=== PATIENT | female | born 1945 | race Caucasian/White ===

== ENCOUNTER → 2016-09-25 | Outpatient (REF) | payer MEDICARE ==
[~2016-09-25] MED LIST: ASPI81TA60 PO; ASPI81TA85 PO; ATOR1TAB21 PO; B COTAB6 PO; CALCTAB7 PO; CENTTAB PO; CRES20TA PO; DILA100C PO; GLUC250C5 PO; KEPP500T5 PO; LEVE500XR PO; LEVO100T5 PO; LEVO75TA3 PO; LOSA100T36 PO; MULTTAB33 PO; NORV5TAB PO; OMEG100011 PO; OMEG12002 PO; TYLE325T5 PO; ULTR50TA PO; VIMP50TA3 PO; VITA-112 PO; VITA100066 PO; VITA400C2 PO; VITACAP33 PO; VITACAP8 PO; [UNRECOGNIZED DRUG - CODE] PO
== END ==
LOC: M LAB REF 16:44
PROVIDERS: ATTEND Nurse Practitioner Family
DX: G40.409 Other generalized epilepsy and epileptic syndromes, not intractable, without status epilepticus (principal)

== ENCOUNTER 2016-10-01 11:46 | Inpatient (IN) | payer MEDICARE ==
[~2016-10-01] VITALS: Ht 160 cm; Wt 79.1 kg
[~2016-10-01 11:46] MED LIST changes: +KEPP500T13 PO; -KEPP500T5 PO; +VITA400C7 PO
[2016-10-01] MEDS ORDERED: LOSARTAN 50 MG TAB PO SCH (12:00)
[2016-10-01] MEDS ORDERED: KEPP500T13 PO (12:02)
[2016-10-01 12:45] LABS: BASO # 0.1 K/mm3 (0.0-0.2); BASO % 0.8 % (0.0-1.0); EOS # 0.2 K/mm3 (0.0-0.50); EOS % 3.1 % (0.0-3.0); LARGE UNSTAINED CELL # 0.2 K/mm3 (0.0-0.4); LYMPH # 2.4 K/mm3 (1.5-4.5); LYMPH % 30.4 % (24.0-44.0); MEAN CORPUSCULAR HEMOGLOBIN 31.6 pg (27.0-33.0); MEAN CORPUSCULAR HGB CONC 34.7 g/dl (32.0-36.5); MONO # 0.4 K/mm3 (0.0-0.8); MONO % 5.5 % (0.0-5.0); NEUTROPHILS # 4.2 K/mm3 (1.8-7.7); NEUTROPHILS % 57.2 % (36.0-66.0); RED CELL DISTRIBUTION WIDTH 13.7 % (11.5-14.5); WHITE BLOOD COUNT 7.3 K/mm3 (4.0-10.0)
--- NOTE | 2016-10-01 12:47 | REP ---
Clinical: Syncope . Comparison: 12/07/2014. Findings: The mediastinum and cardiac silhouette are stable and within normal limits for portable technique. The lung stevens are clear without acute consolidation, effusion, or pneumothorax. Skeletal structures are intact. Impression: No acute cardiopulmonary process appreciated. Signed by Al Gomes MD 10/01/2016 12:38 P
--- NOTE | 2016-10-01 12:54 | REP ---
Clinical: Hypertension and seizures. Comparison: 12/04/2014. Findings: Age-related atrophy and microvascular ischemic changes are appreciated. Old right occipital infarction with encephalomalacia noted. The ventricles and sulci are symmetric. Muñoz-white differentiation is maintained. There is no evidence for acute intracranial hemorrhage, mass/mass effect, pathology or infarction. No extra-axial fluid collection. Calvarium is intact. Paranasal sinuses and mastoid air cells are clear. Impression: Age related atrophy and microvascular ischemic changes. Old right occipital infarct. No acute intracranial hemorrhage, infarction, or mass/mass effect. Signed by Al Gomes MD 10/01/2016 12:46 P
[2016-10-01] MEDS ORDERED: levETIRAcetam 250MG TABLET (KEPPRA) PO ONE (13:00)
[2016-10-01 13:08] LABS: ALBUMIN/GLOBULIN RATIO 1.08 (1.00-1.93); ALKALINE PHOSPHATASE 92 U/L (45-117); ANION GAP 9 MEQ/L (8-16); AST/SGOT 19 U/L (15-37); BILIRUBIN,DIRECT < 0.1 MG/DL (0.0-0.2); BILIRUBIN,TOTAL 0.5 MG/DL (0.2-1.0); BLOOD UREA NITROGEN 31 MG/DL (7-18); CALCIUM LEVEL 8.5 MG/DL (8.8-10.2); CARBON DIOXIDE LEVEL 24 MEQ/L (21-32); CHLORIDE LEVEL 105 MEQ/L (98-107); CREATININE FOR GFR 1.74 MG/DL (0.55-1.02); GLOMERULAR FILTRATION RATE 30.7 (>39); GLUCOSE, FASTING 116 MG/DL (83-110); MAGNESIUM LEVEL 2.6 MG/DL (1.8-2.4); PHOSPHORUS LEVEL 3.8 MG/DL (2.5-4.9); POTASSIUM SERUM 4.8 MEQ/L (3.5-5.1); SODIUM LEVEL 138 MEQ/L (136-145); TOTAL PROTEIN 7.7 GM/DL (6.4-8.2)
[2016-10-01 13:10] LABS: ALT/SGPT 29 U/L (12-78)
[2016-10-01 13:12] LABS: PLATELET COUNT, AUTOMATED 80 k/mm3 (150-450)
[2016-10-01] MEDS: NS 1,000 ML IV SCH ×2 (13:40→16:28)
[2016-10-01] MEDS ORDERED: AMLO5TAB2 PO (14:32)
[2016-10-01] MEDS ORDERED: LOSA100T36 PO (14:32)
[2016-10-01] MEDS ORDERED: ALEV220T26 PO (14:32)
[2016-10-01] MEDS ORDERED: ASPI1TAB PO (14:32)
[2016-10-01] MEDS ORDERED: DEXTROSE 50% 50 ML SYRINGE IV PRN (15:30)
[2016-10-01] MEDS ORDERED: ACETAMINOPHEN TAB 650MG DOSE (2X325MG) PO PRN (15:30)
[2016-10-01] MEDS ORDERED: GLUCAGON FOR INJ 1 MG VIAL (J1610) SC PRN (15:30)
[2016-10-01 16:00] VITALS: BP 167/73
[2016-10-01] MEDS: ASPIRIN 81 MG ENTERIC TAB PO SCH (16:27)
[2016-10-01] MEDS: MULTIVITAMINS/MINERALS THERAP 1 TAB PO SCH (16:27)
[2016-10-01] MEDS: amLODIPine 5 MG TAB PO SCH (16:27)
[2016-10-01] MEDS: ATORVASTATIN 20 MG TAB PO SCH (16:27)
[2016-10-01] MEDS: HumaLOG INSULIN (NovoLOG) PER UNIT SC SCH ×2 (18:03→20:30)
[2016-10-01 19:50] VITALS: BP 135/63
[2016-10-01] MEDS ORDERED: NS 1,000 ML IV SCH (20:15)
[2016-10-01] MEDS ORDERED: levETIRAcetam **XR** 500 MG TABLET PO SCH (21:00)
--- NOTE | 2016-10-01 21:22 | HPE ---
DATE OF ADMISSION: 10/01/2016 PRIMARY CARE PROVIDER: Dr. Alok Duffy CHIEF COMPLAINT: Seizure. HISTORY OF PRESENT ILLNESS: The patient is a 71-year-old female with a diagnosis of seizure disorder since 2010 a year after she had a stroke. She is presenting after a witnessed seizure episode at a [place]astafari, lasting about 5 minutes, this includes postictal phase. She had two friends at her bedside who were witnesses to the seizure and they explained that it started off, she was in a seated position and staring off, looking into space, and then one of them noticed her left cheek muscle began to twitch and on the right corner of the mouth she was drooling. After the seizure the patient was incoherent and confused for a few minutes. Emergency medical services (EMS) arrived and the patient was brought to the hospital. She does not recall any of this event, including her ride to the hospital. She did mention that she stopped taking her second dose of Keppra in the evening because it made her really tired and drowsy. She has recently had three episodes of breakthrough seizures, last one was on Father's Day, two weeks ago. It happened at [employer]. She denies any headache, head trauma, dizziness, tongue biting, fecal or bladder incontinence, chest pain, palpitations, shortness of breath, cough. PAST MEDICAL HISTORY: 1. Seizure. 2. CVA, stroke. 3. Hypertension. 4. Hyperlipidemia. 5. Hypothyroidism. PAST SURGICAL HISTORY: Denies. FAMILY HISTORY: Noncontributory. SOCIAL HISTORY: The patient has never smoked. Denies alcohol or recreational drug use. She is single, never . 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 ALLERGIES TO MEDICATIONS: None. HOME MEDICATIONS: - amlodipine 5 mg once a day - baby aspirin 81 mg once a day - atorvastatin 20 mg once a day - Keppra 500 mg by mouth twice a day - Synthroid 100 mcg once a day - losartan 100 mg once daily - multivitamin one tablet daily - naproxen 220 mg by mouth daily as needed PHYSICAL EXAMINATION: VITAL SIGNS: Blood pressure 134/63, pulse 76, respiratory rate 20, oxygen saturation 97%, 97 degrees Fahrenheit. GENERAL: She is alert, oriented to person, place, time, circumstance. HEENT: Pupils are equal, round and reactive to light. Extraocular muscles intact. Anicteric sclerae. Mucous membranes moist. NECK: Supple. Nontender to palpation. No adenopathy. CARDIOVASCULAR SYSTEM: S1, S2 present. Regular rate. No audible murmurs, rubs or gallops. LUNGS: Clear to auscultation bilaterally. GASTROINTESTINAL: Abdomen is soft, nontender, nondistended. Normal bowel sounds. MUSCULOSKELETAL SYSTEM: No edema, cyanosis, or calf tenderness. Pulses are normal in all extremities. SKIN: Warm, dry. No rash or petechiae or ecchymosis. NEUROLOGIC: Nonfocal findings. LABORATORY DATA: Hematology: White blood cell count is 7.8 thousand, hemoglobin 13.3, hematocrit 38.2, platelets 80. Chemistry: Sodium 138, potassium 4.8, chloride 105, bicarbonate 24, BUN 31, creatinine 1.74, baseline creatinine is 1.4, GFR 30.7, glucose 116, calcium 8.5, phosphorous 3.8, magnesium 2.6. Liver function tests within normal limits. Toxicology: Keppra level is pending. IMAGING STUDIES: CT scan of the head shows age-related atrophy and microvascular ischemic changes. Old right occipital infarct. No acute intracranial pathology. Chest x-ray showed no acute cardiopulmonary process appreciated. IMPRESSION: 1. Status post seizure secondary to medication noncompliance. 2. Renal insufficiency, likely from decreased oral intake. The patient's baseline creatinine is 1.4. 3. History of hypertension, uncontrolled. 4. Thrombocytopenia. 5. History of hyperlipidemia. 6. History of hypothyroidism, stable. PLAN: The patient is admitted to the medical/surgical unit. Resume her Keppra 500 mg twice a day. Awaiting Keppra level; however, the patient would like to switch to another antiseizure medication without the side effect, the drowsiness and feeling tired. Her other needed medications are renewed. Consulted neurology, Dr. Jackeline Mercado. Also, ordered EEG to be done tomorrow. We will monitor creatinine level to normalization. Deep vein thrombosis (DVT) prophylaxis is with antiembolic stockings. Also, monitor platelet level. We will recommend hematology followup after discharge if persists.
[2016-10-01 23:44] VITALS: BP 165/77
[2016-10-02] MEDS ORDERED: SLF 3 ML SYR IV PRN (00:45)
[2016-10-02 03:07] VITALS: BP 155/67
[2016-10-02 05:39] LABS: ALBUMIN 3.1 GM/DL (3.2-5.2); ALBUMIN/GLOBULIN RATIO 0.94 (1.00-1.93); BILIRUBIN,TOTAL 0.3 MG/DL (0.2-1.0); CALCIUM LEVEL 8.1 MG/DL (8.8-10.2); CREATININE FOR GFR 1.75 MG/DL (0.55-1.02); GLOMERULAR FILTRATION RATE 30.5 (>39); POTASSIUM SERUM 4.4 MEQ/L (3.5-5.1); TOTAL PROTEIN 6.4 GM/DL (6.4-8.2)
[2016-10-02] MEDS: LEVOTHYROXINE 100MCG TABLET (0.1MG) PO SCH (06:13)
[2016-10-02] MEDS: SLF 3 ML SYR IV SCH ×3 (06:14→20:27)
[2016-10-02] MEDS ORDERED: NS 1,000 ML IV SCH (07:45)
[2016-10-02 08:00] VITALS: BP 167/74
[2016-10-02] MEDS: HumaLOG INSULIN (NovoLOG) PER UNIT SC SCH ×4 (08:24→20:25)
[2016-10-02] MEDS ORDERED: ENOXAPARIN 40 MG/0.4 ML SYRINGE (J1650) SC SCH (09:00)
--- NOTE | 2016-10-02 09:14 | CR ---
DATE OF CONSULTATION: 10/02/2016 REFERRING PHYSICIAN: Dr. Raya Palma. REASON FOR CONSULTATION: Seizures. HISTORY OF PRESENT ILLNESS: The patient is a 71-year-old woman who developed seizures a year after she had a stroke. She was in [place] when she had stroke in 2010 which caused loss of peripheral vision. The patient does not drive because of loss of visual stevens more on left side. She had a right occipital and parietal ischemic stroke. A year after her stroke, she developed seizures in 2011 when she was still in [place]. She saw a neurologist there. She was on Keppra. Keppra made her drowsy so she was only taking it once a day. She had two generalized tonic-clonic seizures in 2011 with shaking for couple of minutes, loss of consciousness, tongue biting and postictal phase. She had no aura. She had no seizures until this past weekend. She had two seizures when she was in buddhism and at a local restaurant. There were generalized tonic-clonic seizures with postictal phase. She denies any headaches, neck or back pain. She has a right hip bursitis. She does not use a cane. She sometimes has difficulty walking due to bursitis. She does not drive. PAST MEDICAL HISTORY: Right occipital stroke. Seizures. Hypertension. Dyslipidemia. Hypothyroidism. FAMILY HISTORY: There is no family history of seizures or stroke. SOCIAL HISTORY: The patient has never smoked. She denies alcohol or illicit drugs. She is single. She never . 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 ALLERGIES: None. HOME MEDICATIONS: - aspirin 81 mg by mouth daily - Lipitor 20 mg daily - Keppra 5 mg by mouth daily - Synthroid 100 mcg by mouth daily - losartan 100 mg by mouth daily - amlodipine 5 mg by mouth daily - naproxen 220 mg by mouth twice daily as needed REVIEW OF SYSTEMS: All systems were reviewed and were found to be noncontributory except as mentioned in history of present illness. PHYSICAL EXAMINATION: Temperature 97.3, pulse 69, respiratory rate 18, blood pressure 155/67, 95% saturation on room air. Heart: Regular rate and rhythm. Lungs: Clear to auscultation. Abdomen: Soft, nontender, nondistended. No pedal edema. Peripheral pulses are palpable. No gross musculoskeletal abnormalities. Ear, nose, throat examination is within normal limits. The patient is awake, alert, oriented to place, person and time. Normal comprehension, repetition. Her recent and distant memory is intact. There are no signs of meningeal irritation. There is no tremor. There is no dysmetria. Gait is mildly unsteady. No facial weakness. Tongue and uvula are midline. Extraocular muscles are intact. She has decreased visual field to confrontation on left side. Pupils are 5 mm bilaterally reactive to light. 5/5 strength in all four extremities. Deep tendon reflexes are 1+ throughout. Normal light touch, pinprick, vibration, sensation in her feet. DIAGNOSTIC STUDIES: CT scan of head showed old right occipital ischemic stroke. ASSESSMENT: 1. 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 2. Right occipital and parietal ischemic stroke in 2010. PLAN: 1. EEG. 2. Dilantin 300 mg by mouth daily at bedtime. 3. Discontinue Keppra due to side effects. 4. She is aware that she should not be driving. The patient already does not drive due to decreased visual field in peripheral vision. 5. She can see orthopedics for right hip bursitis for steroid injections. 6. Follow with our office in 3-4 weeks after hospital discharge.
[2016-10-02 11:30] VITALS: BP 135/60
[2016-10-02] MEDS ORDERED: HEPARIN SOD (PORCINE) 5000 UNITS/ML VIAL SQ SCH (11:30)
--- NOTE | 2016-10-02 11:32 | IPNPDOC ---
Subjective Date Seen The patient was seen on 10/02/16. Subjective Chief Complaint/HPI The patient is a 71-year-old female admitted with a reason for visit of Seizure. General: Denies: Chills, Night Sweats Constitutional: Denies: Chills, Fever Eyes: Denies: Pain ENT: Denies: Head Aches, Ear Pain Skin: Denies: Rash, Lesions Pulmonary: Denies: Dyspnea, Cough Cardiovascular: Denies: Chest Pain, Palpitations Gastrointestinal: Denies: Nausea, Vomiting, Abdominal Pain Genitourinary: Denies: Dysuria, Frequency Hematologic: Denies: Bruising, Bleeding Excessively Objective Physical Examination General Exam: Positive: Alert, Cooperative, No Acute Distress ENT Exam: Positive: Atraumatic, Mucous membr. moist/pink Neck Exam: Negative: JVD Chest Exam: Positive: Clear to auscultation, Normal air movement Heart Exam: Positive: Rate Normal, Normal S1, Normal S2 Abdomen Exam: Positive: Soft, Negative: Tenderness Extremity Exam: Negative: Tenderness, Swelling Neuro Exam: Positive: Strength at 5/5 X4 ext, Normal Tone, Sensation Intact Psych Exam: Positive: Oriented x 3 Assessment /Plan Plan/VTE VTE Prophylaxis Ordered?: Yes Plan Episode of Seizure 2/2 Non-Adherence to AED Therapt CT Head with no acute findings EEG pending Patient's Keppra has been discontinued due to reported side effects Dilantin 300mg qhs has been started Neurology input appreciated Seizure precautions We will cont to monitor the patient Hx of Right Occipital and Parietal Ischemic Stroke in 2010 No focal extremity weakness Cont ASA, Statin Acute kidney injury superimposed on chronic kidney disease stage III Serum Creatinine 1.75 (Baseline Cr 1.4-1.5 from 2015) This may be a progression of underlying CKD rather than WILLAM as we do not have lab work for the last 20+ months However, we will hold nephrotoxins Gentle IVF Hydration ordered We will cont to monitor BMP Hypothyroidism Cont Levothyroxine Dyslipidemia Cont Statin Hypertension, stable Cont Norvasc DVT Prophylaxis Heparin SC VS, I&O, 24H, Fishbone Vital Signs/I&O Vital Signs Date Time Temp Pulse Resp B/P (MAP) Pulse Ox O2 Delivery O2 Flow Rate FiO2 10/02/16 08:00 97.5 62 18 167/74 (105) 99 Room Air I&O- Last 24 Hours up to 6 AM 10/02/16 06:00 Intake Total 1460 ml Output Total 1925 ml Balance -465 ml Laboratory Data 24H LABS Laboratory Tests 2 10/01/16 12:29: White Blood Count 7.3, Red Blood Count 4.20, Hemoglobin 13.3, Hematocrit 38.2, Mean Corpuscular Volume 91.0, Mean Corpuscular Hemoglobin 31.6, Mean Corpuscular Hemoglobin Concent 34.7, Red Cell Distribution Width 13.7, Platelet Count 80L, Neutrophils (%) (Auto) 57.2, Lymphocytes (%) (Auto) 30.4, Monocytes ( %) (Auto) 5.5H, Eosinophils (%) (Auto) 3.1H, Basophils (%) (Auto) 0.8, Neutrophils # (Auto) 4.2, Lymphocytes # (Auto) 2.4, Monocytes # (Auto) 0.4, Eosinophils # (Auto) 0.2, Basophils # (Auto) 0.1, Large Unclassified Cells % 3.0 , Large Unclassified Cells # 0.2, Anion Gap 9, Glomerular Filtration Rate 30.7L , Calcium Level 8.5L, Phosphorus Level 3.8, Magnesium Level 2.6H, Aspartate Amino Transf (AST/SGOT) 19, Alanine Aminotransferase (ALT/SGPT) 29, Alkaline Phosphatase 92, Total Bilirubin 0.5, Direct Bilirubin < 0.1, Total Protein 7.7, Albumin 4.0, Albumin/Globulin Ratio 1.08 10/01/16 17:02: Bedside Glucose (Misc Panel) 195H 10/01/16 20:29: Bedside Glucose (Misc Panel) 164H 10/01/16 21:44: Urine Appearance HAZY, Urine Color YELLOW, Urine pH 5.0, Urine Specific [place] 1.016, Urine Protein 1+H, Urine Glucose (UA) 1+H, Urine Ketones NEGATIVE, Urine Urobilinogen 0.2, Urine Bilirubin NEGATIVE, Urine Leukocyte Esterase 2+H, Urine Blood NEGATIVE, Urine Nitrite NEGATIVE, Urine WBC (Auto) 32H, Urine RBC (Auto) 4H, Urine Hyaline Casts (Auto) 0, Urine Bacteria (Auto) NEGATIVE, Urine Squamous Epithelial Cells 1, Urine Mucus (Auto) SMALL, Urine Sperm (Auto) 10/02/16 04:40: Anion Gap 10, Glomerular Filtration Rate 30.5L, Blood Urea Nitrogen 30H, Creatinine 1.75H, Sodium Level 141, Potassium Level 4.4, Chloride Level 110H, Carbon Dioxide Level 21, Calcium Level 8.1L, Aspartate Amino Transf (AST/SGOT) 18, Alanine Aminotransferase (ALT/SGPT) 22, Alkaline Phosphatase 81, Total Bilirubin 0.3, Total Protein 6.4, Albumin 3.1#L, Albumin/Globulin Ratio 0.94L CBC/BMP Laboratory Tests 10/01/16 12:29 Red Blood Count 4.20, Mean Corpuscular Volume 91.0, Mean Corpuscular Hemoglobin 31.6, Mean Corpuscular Hemoglobin Concent 34.7, Red Cell Distribution Width 13.7 , Neutrophils (%) (Auto) 57.2, Lymphocytes (%) (Auto) 30.4, Monocytes (%) (Auto ) 5.5 H, Eosinophils (%) (Auto) 3.1 H, Basophils (%) (Auto) 0.8, Neutrophils # ( Auto) 4.2, Lymphocytes # (Auto) 2.4, Monocytes # (Auto) 0.4, Eosinophils # (Auto ) 0.2, Basophils # (Auto) 0.1 10/02/16 04:40 Calcium Level 8.1 L, Aspartate Amino Transf (AST/SGOT) 18, Alanine Aminotransferase (ALT/SGPT) 22, Alkaline Phosphatase 81, Total Bilirubin 0.3, Total Protein 6.4, Albumin 3.1 #L JANET THORPE MD Oct 02, 2016 11:31
[2016-10-02] MEDS: amLODIPine 5 MG TAB PO SCH (12:14)
[2016-10-02] MEDS: ASPIRIN 81 MG ENTERIC TAB PO SCH (12:14)
[2016-10-02] MEDS: ATORVASTATIN 20 MG TAB PO SCH (12:14)
[2016-10-02] MEDS: MULTIVITAMINS/MINERALS THERAP 1 TAB PO SCH (12:14)
[2016-10-02 16:00] VITALS: BP 136/66
[2016-10-02 20:00] VITALS: BP 171/73
[2016-10-02] MEDS: PHENYTOIN ER 100 MG CAP PO SCH (20:27)
[2016-10-03] VITALS: BP 158/60
[2016-10-03 04:00] VITALS: BP 164/76
[2016-10-03] MEDS: SLF 3 ML SYR IV SCH ×3 (05:31→22:00)
[2016-10-03] MEDS: LEVOTHYROXINE 100MCG TABLET (0.1MG) PO SCH (05:31)
[2016-10-03 05:46] LABS: ALBUMIN 3.4 GM/DL (3.2-5.2); BILIRUBIN,TOTAL 0.4 MG/DL (0.2-1.0); CALCIUM LEVEL 8.5 MG/DL (8.8-10.2); CREATININE FOR GFR 1.6 MG/DL (0.55-1.02); GLOMERULAR FILTRATION RATE 33.8 (>39); POTASSIUM SERUM 4.2 MEQ/L (3.5-5.1); TOTAL PROTEIN 6.8 GM/DL (6.4-8.2)
--- NOTE | 2016-10-03 07:16 | ECGEPIP ---
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
[2016-10-03] MEDS: HumaLOG INSULIN (NovoLOG) PER UNIT SC SCH ×4 (07:54→21:00)
[2016-10-03 08:00] VITALS: BP 157/71
[2016-10-03 10:25] VITALS: BP 156/72
[2016-10-03] MEDS: ATORVASTATIN 20 MG TAB PO SCH (12:16)
[2016-10-03] MEDS: amLODIPine 10 MG TAB PO SCH (12:16)
[2016-10-03] MEDS: MULTIVITAMINS/MINERALS THERAP 1 TAB PO SCH (12:16)
[2016-10-03] MEDS: ASPIRIN 81 MG ENTERIC TAB PO SCH (12:16)
[2016-10-03 14:00] VITALS: BP 146/68
[2016-10-03] MEDS ORDERED: PHENYTOIN INJection 1,000 MG in NS 100 ML IV ONE (17:00)
--- NOTE | 2016-10-03 17:13 | IPN ---
DATE: 10/03/2016 SUBJECTIVE: The patient is seen and examined in the room today. The patient denies any recurrence of seizure or altered mental status changes. The patient was started on Dilantin yesterday night. The patient does not have any adverse reaction. The patient was taking Keppra in the past. The patient stated that initially the evening dose caused her to have confusion that was the reason why she did not take any Keppra in the evening time. No overnight events reported. OBJECTIVE: VITAL SIGNS: Temperature is 97.8, pulse of 58, respirations 18, blood pressure is 157/71, pulse oximetry 96% on room air. GENERAL: No sign of acute distress. Alert, oriented times three. HEENT: Normocephalic, atraumatic. Extraocular motors grossly intact. CARDIOVASCULAR: Positive S1, S2. Regular rate. LUNGS: Clear to auscultation bilaterally. ABDOMEN: Soft, nontender, nondistended. Bowel sounds present. No rebound or guarding. EXTREMITIES: No edema. No sign of cyanosis. LABORATORY DATA: Sodium is 140, potassium 4.2, chloride is 108, carbon dioxide 25, BUN 31, creatinine 1.6, GFR is 33.8, fasting glucose 131, calcium is 8.5, total bilirubin is 0.4, AST 14, ALT 22, alkaline phosphatase 85, total protein 6.8, albumin 3.1. ASSESSMENT AND PLAN: 1. Seizures. The patient will have EEG. Neurology has been consulted. Keppra was discontinued. The patient was started on Dilantin 300 mg at night. The patient had her first dose yesterday. No adverse effects seen. Continue to monitor the patient. 2. History of right occipital and parietal lobe ischemic stroke in 2010. Continue aspirin and statin. 3. Acute on chronic kidney disease. At baseline, the patient has creatinine around 1.5 measured in 2014. Currently, the patient has a creatinine of 1.6, which is improving compared to yesterday. Continue to monitor. Encourage increased oral intake. 4. Hypothyroidism. On Synthroid. 5. Dyslipidemia. On statin. 6. Hypertension. Due to acute on chronic kidney disease, the patient's losartan was on hold. We will increase the patient's amlodipine. 7. Deep vein thrombosis (DVT) prophylaxis. The patient is on thromboembolic compression stockings (TEDS) and sequential compression device (SCD).
[2016-10-03] MEDS: PHENYTOIN ER 100 MG CAP PO SCH (21:25)
[2016-10-03] MEDS: BETAMETHASONE VAL 0.1% OINT 15 GM TOP SCH (21:30)
[2016-10-03 22:00] VITALS: BP 152/74
[2016-10-04] MEDS: LEVOTHYROXINE 100MCG TABLET (0.1MG) PO SCH (05:52)
[2016-10-04] MEDS: SLF 3 ML SYR IV SCH ×3 (05:59→21:07)
[2016-10-04 06:00] VITALS: BP 129/67
[2016-10-04 06:57] LABS: ALBUMIN 3.4 GM/DL (3.2-5.2); ALBUMIN/GLOBULIN RATIO 0.94 (1.00-1.93); BILIRUBIN,TOTAL 0.4 MG/DL (0.2-1.0); CALCIUM LEVEL 8.6 MG/DL (8.8-10.2); CREATININE FOR GFR 1.81 MG/DL (0.55-1.02); GLOMERULAR FILTRATION RATE 29.3 (>39); POTASSIUM SERUM 4.3 MEQ/L (3.5-5.1)
[2016-10-04] MEDS: HumaLOG INSULIN (NovoLOG) PER UNIT SC SCH ×4 (09:21→21:06)
[2016-10-04] MEDS: BETAMETHASONE VAL 0.1% OINT 15 GM TOP SCH ×2 (09:22→21:07)
[2016-10-04] MEDS ORDERED: diphenhydrAMINE 25 MG CAP PO ONE (10:15)
[2016-10-04] MEDS: amLODIPine 10 MG TAB PO SCH (12:33)
[2016-10-04] MEDS: ATORVASTATIN 20 MG TAB PO SCH (12:33)
[2016-10-04] MEDS: MULTIVITAMINS/MINERALS THERAP 1 TAB PO SCH (12:33)
[2016-10-04] MEDS: ASPIRIN 81 MG ENTERIC TAB PO SCH (12:33)
[2016-10-04] MEDS: DIVALPROEX 500MG *ER* TAB PO SCH ×2 (12:34→21:05)
[2016-10-04 14:00] VITALS: BP 147/69
[2016-10-04] MEDS ORDERED: diphenhydrAMINE 25 MG CAP PO PRN (15:00)
[2016-10-04] MEDS: predniSONE 20 MG TAB PO SCH (18:05)
--- NOTE | 2016-10-04 19:24 | IPN ---
DATE: 10/04/2016 SUBJECTIVE: The patient is seen and examined in the room today. The patient complains about rapid progressing rashes throughout her whole body that creates significant itchiness. No recurrence of seizure observed. OBJECTIVE: VITAL SIGNS: Temperature is 99, pulse of 66, respirations 18, blood pressure is 129/67, pulse oximetry 97% on room air. GENERAL: No sign of acute distress. Alert, oriented times three. HEENT: Normocephalic, atraumatic. Extraocular motors grossly intact. CARDIOVASCULAR: Positive S1, S2. Regular rate. LUNGS: Clear to auscultation bilaterally. ABDOMEN: Soft, nontender, nondistended. Bowel sounds present. No rebound or guarding. MUSCULOSKELETAL: No lower extremity edema. No signs of cyanosis. DERMATOLOGICAL: Widespread scattered rash front and back of the trunk and majority of the bilateral upper extremities and proximal lower extremities. LABORATORY DATA: Sodium is 140, potassium 4.3, chloride is 104, carbon dioxide 28, BUN 35, creatinine 1.81, GFR is 29.3, fasting glucose 126, calcium is 8.6, total bilirubin is 0.4, AST 14, ALT 23, alkaline phosphatase 79, total protein 7, albumin 3.4. ASSESSMENT AND PLAN: 1. Seizures. The patient had an EEG. Will follow up with outpatient report. Neurology has been consulted. Initially patient was switched to adverse effect from Keppra. The patient's seizure medication was switched to Dilantin however patient started having widespread rash on Dilantin. 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 Patient seizure medication was switched to Depakote. Continue to monitor patient's seizure precautions. 2. Acute on chronic kidney disease. Most likely secondary to poor oral intake. Patient has a creatine around 12.5 in 2014. We encouraged oral intake. Will continue to monitor. 3. History of right occipital and parietal lobe ischemic stroke in 2010. Continue aspirin and statin. 4. Hypothyroidism. On Synthroid. 5. Dyslipidemia. On statin. 6. Hypertension. Due to patients acute on chronic kidney disease, the patient's losartan was on hold. The patients amlodipine dose is being adjusted. Will continue to monitor. 7. Deep vein thrombosis (DVT) prophylaxis. The patient is on thromboembolic compression stockings (TEDS) and sequential compression device (SCD).
[2016-10-04 22:00] VITALS: BP 151/68
[2016-10-05 06:00] VITALS: BP 149/72
[2016-10-05] MEDS: LEVOTHYROXINE 100MCG TABLET (0.1MG) PO SCH (06:07)
[2016-10-05] MEDS: SLF 3 ML SYR IV SCH ×3 (06:09→20:58)
[2016-10-05 07:49] LABS: MEAN CORPUSCULAR HEMOGLOBIN 31.1 pg (27.0-33.0); MEAN CORPUSCULAR VOLUME 91.4 fl (80.0-96.0); RED CELL DISTRIBUTION WIDTH 13.6 % (11.5-14.5); WHITE BLOOD COUNT 6.8 K/mm3 (4.0-10.0)
[2016-10-05 08:17] LABS: CREATININE FOR GFR 1.91 MG/DL (0.55-1.02); GLOMERULAR FILTRATION RATE 27.6 (>39); POTASSIUM SERUM 4.8 MEQ/L (3.5-5.1)
[2016-10-05] MEDS: DIVALPROEX 500MG *ER* TAB PO SCH ×2 (09:05→20:57)
[2016-10-05] MEDS: BETAMETHASONE VAL 0.1% OINT 15 GM TOP SCH ×2 (09:05→20:59)
[2016-10-05] MEDS: HumaLOG INSULIN (NovoLOG) PER UNIT SC SCH ×4 (09:05→20:58)
[2016-10-05] MEDS: predniSONE 20 MG TAB PO SCH (09:05)
[2016-10-05 14:00] VITALS: BP 148/81
[2016-10-05 14:58] VITALS: BP 149/72
[2016-10-05] MEDS: MULTIVITAMINS/MINERALS THERAP 1 TAB PO SCH (14:58)
[2016-10-05] MEDS: ATORVASTATIN 20 MG TAB PO SCH (14:58)
[2016-10-05] MEDS: amLODIPine 10 MG TAB PO SCH (14:58)
[2016-10-05] MEDS: ASPIRIN 81 MG ENTERIC TAB PO SCH (14:58)
--- NOTE | 2016-10-05 20:27 | IPN ---
DATE: 10/05/2016 SUBJECTIVE: The patient is seen and examined in the room today. The patient continues to have pruritus and rash throughout the body. However, she thinks the pruritus is being controlled with Benadryl and prednisone. The extent of the rash is also improving. No recurrence of seizures. OBJECTIVE: VITAL SIGNS: Temperature is 97.6, pulse is 71, respirations 18, blood pressure 149/72, pulse oximetry is 97% in room air. GENERAL: No sign of acute distress. Alert and oriented times three. HEENT: Normocephalic, atraumatic. Extraocular motor grossly intact. CARDIOVASCULAR: Positive S1, S2, regular rate. LUNGS: Clear to auscultation bilaterally. ABDOMEN: Soft, nontender, nondistended. Bowel sounds present. No rebound, no guarding. EXTREMITIES: No edema, no sign of cyanosis. DERMATOLOGICAL: There is a widespread scattered rash in the front and the back of the trunk, majority of bilateral upper extremities and proximal bilateral lower extremities. LABORATORY DATA: WBC is 6.8, hemoglobin 12.8, hematocrit 37.5, platelet count is 82. Sodium is 138, potassium 4.8, chloride 105, carbon dioxide 24, BUN 37, creatinine 1.91, GFR is 27.6, fasting glucose is 212, Calcium is 9. ASSESSMENT AND PLAN: 1. Seizure disorder. The patient was initially on Keppra, which caused confusion. The patient was switched to Dilantin, which caused widespread rash. Then, the patient's seizure medication was finally switched to Depakote. Dosage is being adjusted by nephrology. Appreciate their assistance. 2. Acute on chronic kidney disease. Most likely secondary to poor oral intake. The patient continued to have renal impairment, and we encouraged increased oral intake. The patient will be given IV support in the next several hours. 3. History of right occipital and parietal lobe ischemic stroke in 2010. Continue aspirin and statin. 4. Hypothyroidism. On Synthroid. 5. Dyslipidemia. On statin. 6. Hypertension. Due to acute on chronic kidney disease, losartan has been on hold. The patient is on amlodipine. Dosage is being adjusted. 7. Drug ALLERGY to DILANTIN. The patient has generalized rash. The patient has been taking as needed Benadryl for pruritus. The patient is also taking oral prednisone. Drug rash is improving. 8. Deep vein thrombosis (DVT) prophylaxis. The patient is on thromboembolism deterrents (TEDs) and sequential compression device.
[2016-10-05] MEDS: NS 1,000 ML IV SCH (21:01)
[2016-10-05 22:00] VITALS: BP 153/70
[2016-10-06] MEDS: NS 1,000 ML IV SCH (05:45)
[2016-10-06 06:00] VITALS: BP 167/76
[2016-10-06] MEDS: SLF 3 ML SYR IV SCH (06:00)
[2016-10-06] MEDS: LEVOTHYROXINE 100MCG TABLET (0.1MG) PO SCH (06:27)
[2016-10-06 07:19] LABS: MEAN CORPUSCULAR HEMOGLOBIN 31.5 pg (27.0-33.0); MEAN CORPUSCULAR HGB CONC 34.3 g/dl (32.0-36.5); MEAN CORPUSCULAR VOLUME 91.9 fl (80.0-96.0); RED CELL DISTRIBUTION WIDTH 13.8 % (11.5-14.5); WHITE BLOOD COUNT 10.9 K/mm3 (4.0-10.0)
[2016-10-06] MEDS ORDERED: PRED10TA2 PO (07:26)
[2016-10-06] MEDS ORDERED: DEPA500T2 PO (07:26)
[2016-10-06] MEDS ORDERED: AMLO10TA2 PO (07:26)
[2016-10-06] MEDS ORDERED: DIPH25CA PO (07:26)
[2016-10-06 07:49] LABS: CALCIUM LEVEL 8.3 MG/DL (8.8-10.2); CREATININE FOR GFR 1.86 MG/DL (0.55-1.02); GLOMERULAR FILTRATION RATE 28.4 (>39); POTASSIUM SERUM 4.6 MEQ/L (3.5-5.1)
[2016-10-06] MEDS: predniSONE 20 MG TAB PO SCH (09:08)
[2016-10-06] MEDS: BETAMETHASONE VAL 0.1% OINT 15 GM TOP SCH (09:08)
[2016-10-06] MEDS: DIVALPROEX 500MG *ER* TAB PO SCH (09:08)
[2016-10-06] MEDS: HumaLOG INSULIN (NovoLOG) PER UNIT SC SCH (09:08)
--- NOTE | 2016-10-06 20:47 | EEG ---
DATE OF PROCEDURE: 10/02/2016 REFERRING PHYSICIAN: Dr. Noah Torres DIAGNOSIS: Seizure. EEG NUMBER: [id number] HISTORY: The patient is a 71-year-old woman with a history of stroke and generalized tonic-clonic seizures. She is currently on Keppra and Dilantin. This EEG was done to rule out epileptic potential. INTERPRETATION: The patient was noted to be in awake and drowsy states during this EEG. Resting awake background rhythm consisted of well-formed posterior dominant rhythm with anterior/posterior gradient comprising of 9 Hz alpha activity measuring 15-40 microvolts in amplitude. It was symmetric and reactive to eye opening. Attenuation of posterior dominant rhythm was seen during transition into drowsiness. Stage I and II sleep were reviewed and were symmetric bilaterally. Hyperventilation remained unremarkable. Photic stimulation remained unremarkable. EKG revealed normal sinus rhythm. No focal, lateralizing or epileptiform abnormalities were seen. No clinical or electrographic seizures were recorded. CONCLUSION: This EEG in awake, drowsy states, stage I and II sleep is within normal limits.
--- NOTE | 2016-10-09 19:12 | DSES ---
DATE OF ADMISSION: 10/01/2016 DATE OF DISCHARGE: 10/06/2016 PRIMARY CARE PROVIDER: Alok Duffy Jr., MD CONSULTANTS: Frank Drummond MD PROCEDURES: None. COMPLICATIONS: None. DISCHARGE DIAGNOSES: 1. Seizure disorder. 2. Acute on chronic kidney disease. 3. History of right occipital and parietal lobe ischemic stroke. 4. Hypothyroidism. 5. Dyslipidemia. 6. Hypertension. HOSPITALIZATION COURSE: Patient is a 71-year-old female who presented to [facility] on 10/01/2016, after a seizure. Neurologist, Dr. Drummond, was consulted and EEG was ordered. Due to the adverse effect to Keppra, patient's antiseizure medication was switched to Dilantin. Within 24-48 hours patient started to develop a generalized rash spreading down from the upper chest throughout the whole body and patient experienced significant pruritus. Benadryl and prednisone were started and neurologist reviewed the medication and patient's antiseizure medication was switched to Depakote. Patient is observed in the hospital and patient did not have a recurrence of the seizure and patient did not have a reaction to Depakote. On 10/06/2016, patient is discharged from the hospital with the recommendation to followup with primary care provider and followup with neurologist in outpatient setting. OBJECTIVE: VITAL SIGNS: Temperature 97.7, pulse is 66, respirations 16, blood pressure 167/76, pulse oximetry 100% in room air. LABORATORY DATA: WBC 10.9, hemoglobin 11.8, hematocrit 34.5, platelet count 58. Sodium 141, potassium 4.6, chloride 107, carbon dioxide 24, BUN 42, creatinine 1.86, GFR 28.4, fasting glucose 132, calcium is 8.3. IMAGING STUDIES: CT of the head without contrast on 10/01/2016, showed age-related atrophy and microvascular ischemic change. Old right occipital infarct. No acute intracranial hemorrhage, infarction, or mass/mass effect. Chest x-ray on 10/01/2016, showed no acute cardiopulmonary process appreciated. DISCHARGE MEDICATIONS: - amlodipine 10 mg by mouth daily - Benadryl 25 mg by mouth every 6 hours as needed for 14 days - Depakote 500 mg by mouth twice a day - prednisone tapering dose - aspirin 81 mg by mouth daily - atorvastatin 20 mg by mouth daily - Synthroid 100 mcg by mouth daily - losartan 100 mg by mouth daily - multivitamin one tablet by mouth daily DISCHARGE INSTRUCTIONS: Discontinue lines. Discharge home. Activity as tolerated. Low salt diet as tolerated. Patient should followup with Dr. Duffy in 1-2 weeks. Patient should followup with neurology in 1-2 weeks. DISCHARGE CONDITION: Stable. DISCHARGE TIME: Greater than 30 minutes.
== END 2016-10-06 12:30 | disposition home or self-care (01) | DRG 57 ==
LOC: M ED 13:37 → M ED INP 15:19 → M PCU 16:01 → M MS5PR 10-03 10:22
PROVIDERS: ADMIT Hospitalist; ATTEND Internal Medicine
DX: I69.398 Other sequelae of cerebral infarction (principal); N17.9 Acute kidney failure, unspecified; E03.9 Hypothyroidism, unspecified; E78.5 Hyperlipidemia, unspecified; I12.9 Hypertensive chronic kidney disease with stage 1 through stage 4 chronic kidney disease, or unspecified chronic kidney disease; Z79.82 Long term (current) use of aspirin; Z79.899 Other long term (current) drug therapy; G40.409 Other generalized epilepsy and epileptic syndromes, not intractable, without status epilepticus; Z91.14 Patient's other noncompliance with medication regimen; H54.7 Unspecified visual loss; T42.75XA Adverse effect of unspecified antiepileptic and sedative-hypnotic drugs, initial encounter; M70.71 Other bursitis of hip, right hip; N18.3 Chronic kidney disease, stage 3 (moderate); T42.0X5A Adverse effect of hydantoin derivatives, initial encounter; Y93.9 Activity, unspecified

== ENCOUNTER → 2016-10-13 | Outpatient (CLI) | payer MEDICARE ==
[~2016-10-13] MED LIST changes: +ALEV220T26 PO; +AMLO10TA2 PO; +AMLO5TAB2 PO; +ASPI1TAB PO; +DEPA500T2 PO; +DIPH25CA PO; +PRED10TA2 PO
[2016-10-13 17:45] LABS: BASO % 0.5 % (0.0-1.0); EOS % 0.3 % (0.0-3.0); LARGE UNSTAINED CELL # 0.1 K/mm3 (0.0-0.4); LARGE UNSTAINED CELL % 0.9 % (0.0-4.0); LYMPH # 1.2 K/mm3 (1.5-4.5); MEAN CORPUSCULAR HEMOGLOBIN 30.8 pg (27.0-33.0); MEAN CORPUSCULAR HGB CONC 33.2 g/dl (32.0-36.5); MEAN CORPUSCULAR VOLUME 92.6 fl (80.0-96.0); MONO # 0.2 K/mm3 (0.0-0.8); MONO % 1.9 % (0.0-5.0); NEUTROPHILS # 6.5 K/mm3 (1.8-7.7); NEUTROPHILS % 82.4 % (36.0-66.0); PLATELET COUNT, AUTOMATED 145 k/mm3 (150-450); RED CELL DISTRIBUTION WIDTH 13.4 % (11.5-14.5); WHITE BLOOD COUNT 7.8 K/mm3 (4.0-10.0)
[2016-10-13 18:22] LABS: ALBUMIN 3.7 GM/DL (3.2-5.2); ALBUMIN/GLOBULIN RATIO 1.03 (1.00-1.93); BILIRUBIN,TOTAL 0.4 MG/DL (0.2-1.0); CALCIUM LEVEL 8.7 MG/DL (8.8-10.2); CREATININE FOR GFR 1.74 MG/DL (0.55-1.02); GLOMERULAR FILTRATION RATE 30.7 (>39); POTASSIUM SERUM 4.9 MEQ/L (3.5-5.1); TOTAL PROTEIN 7.3 GM/DL (6.4-8.2)
== END ==
LOC: M LAB 15:46
PROVIDERS: ATTEND Psychiatry & Neurology Neurology
DX: G40.209 Localization-related (focal) (partial) symptomatic epilepsy and epileptic syndromes with complex partial seizures, not intractable, without status epilepticus (principal); I63.031 Cerebral infarction due to thrombosis of right carotid artery

== ENCOUNTER 2016-10-14 10:15 | Emergency (ER) | payer MEDICARE ==
--- NOTE | 2016-10-14 11:22 | REP ---
Chest one-view HISTORY: Syncope Comparison: 10/01/2016 The lungs are clear. The heart is normal in size. The pulmonary vasculature is normal in appearance. Impression: No acute disease. Signed by Kyle Reynolds MD 10/14/2016 11:13 A
--- NOTE | 2016-10-14 11:33 | REP ---
CT HEAD WITHOUT CONTRAST: HISTORY: Altered mental status. COMPARISON: 10/01/2016 An area of decreased attenuation is present in the right occipital lobe. This represents an old infarction. Areas of decreased attentuation are present in the periventricular and subcortical white matter. This represents small vessel ischemic disease. There is no intraparenchymal hemorrhage, acute infarct, mass or midline shift. The ventricular system and cortical sulci are dilated consistent with mild volume loss. There is no extracerebral collection. The visualized sinuses are clear. IMPRESSION: 1. Old right occipital lobe infarction. 2. Small vessel ischemic disease. 3. Mild volume loss. Signed by Kyle Reynolds MD 10/14/2016 11:39 A
[2016-10-14 11:42] LABS: BASO % 0.3 % (0.0-1.0); EOS # 0.2 K/mm3 (0.0-0.50); EOS % 1.2 % (0.0-3.0); LARGE UNSTAINED CELL # 0.3 K/mm3 (0.0-0.4); LARGE UNSTAINED CELL % 2.2 % (0.0-4.0); LYMPH # 3.6 K/mm3 (1.5-4.5); MEAN CORPUSCULAR HEMOGLOBIN 30.4 pg (27.0-33.0); MONO # 0.7 K/mm3 (0.0-0.8); MONO % 4.8 % (0.0-5.0); NEUTROPHILS # 9.2 K/mm3 (1.8-7.7); NEUTROPHILS % 67.5 % (36.0-66.0); RED CELL DISTRIBUTION WIDTH 13.6 % (11.5-14.5); WHITE BLOOD COUNT 13.6 K/mm3 (4.0-10.0)
[2016-10-14 11:43] LABS: PLATELET COUNT, AUTOMATED 89 k/mm3 (150-450)
[2016-10-14 11:49] LABS: CALCIUM LEVEL 8.2 MG/DL (8.8-10.2); CREATININE FOR GFR 1.63 MG/DL (0.55-1.02); FREE T4 1.09 NG/DL (0.76-1.46); GLOMERULAR FILTRATION RATE 33.1 (>39); POTASSIUM SERUM 3.9 MEQ/L (3.5-5.1)
[2016-10-14] MEDS ORDERED: ASPIRIN 81 MG CHEW TABLET PO ONE (12:15)
--- NOTE | 2016-10-14 13:39 | REP ---
RIGHT HIP, ONE VIEW: HISTORY: Fall. There is no acute fracture or dislocation. There is narrowing of the joint space with associated sclerosis and osteophyte formation. A calcified uterine fibroid is present in the pelvis. IMPRESSION: Degenerative change as described above. Signed by Kyle Reynolds MD 10/14/2016 01:40 P
--- NOTE | 2016-10-14 13:40 | REP ---
RIGHT FEMUR, THREE VIEWS: There is no acute fracture or dislocation. There is narrowing of the hip and knee joint spaces. IMPRESSION: There is no acute fracture or dislocation. Signed by Kyle Reynolds MD 10/14/2016 01:40 P
[2016-10-14] MEDS ORDERED: NS 1,000 ML IV ONE (14:00)
--- NOTE | 2016-10-14 14:44 | REP ---
AP PELVIS, ONE VIEW: HISTORY: Fall. There is no acute fracture or dislocation. There is narrowing of the joint spaces with associated sclerosis. Osteophytes are present, greater on the right than on the left. A calcified uterine fibroid is present. IMPRESSION: Degenerative change as described above. Signed by Kyle Reynolds MD 10/14/2016 02:49 P
--- NOTE | 2016-10-14 15:26 | REP ---
CT RIGHT HIP WITHOUT CONTRAST: HISTORY: Pain. There is no acute fracture or dislocation. There is narrowing of the joint space with associated sclerosis. Large osteophytes are present on the acetabulum and femur. A calcified uterine fibroid is present in the pelvis. IMPRESSION: Degenerative change as described above. Signed by Kyle Reynolds MD 10/14/2016 03:27 P
[2016-10-14 16:26] VITALS: BP 174/77
--- NOTE | 2016-10-14 16:57 | ECGEPIP ---
Stationary ECG Study [facility] - ED Test Date: 2016-10-14 Pat Name: TASHI ARIAS Department: Room: - Gender: F Residential Director: kyara : 1945 Requested By: Thong Troncoso Order Number: [id number] Reading MD: Thong Troncoso Measurements Intervals [place] Rate: 67 P: 52 AL: 177 QRS: -37 QRSD: 110 T: 28 QT: 433 QTc: 458 Interpretive Statements SINUS RHYTHM WITH SINUS ARRHYTHMIA MARKED LEFT AXIS DEVIATION MODERATE INTRAVENTRICULAR CONDUCTION DELAY ST DEVIATION AND MODERATE T-WAVE ABNORMALITY, CONSIDER ANTERIOR ISCHEMIA cw 10/01/[address] t wave changes rule out anterolateral ischemia CLINICALLY CORRELATE Electronically Signed On 10-14-2016 16:57:13 EDT by Thong Troncoso
--- NOTE | 2016-10-14 17:03 | ECGEPIP ---
Stationary ECG Study [facility] - ED Test Date: 2016-10-14 Pat Name: TASHI ARIAS Department: Room: - Gender: F Manager Metal: kyara : 1945 Requested By: Thong Troncoso Order Number: [id number] Reading MD: Thong Troncoso Measurements Intervals [place] Rate: 73 P: 53 [place]: 173 QRS: -40 QRSD: 116 T: 89 QT: 381 QTc: 422 Interpretive Statements SINUS RHYTHM WITH SINUS ARRHYTHMIA MARKED LEFT AXIS DEVIATION PATTERN CONSISTENT WITH PULMONARY DISEASE MODERATE INTRAVENTRICULAR CONDUCTION DELAY MODERATE T-WAVE ABNORMALITY, CONSIDER ANTEROLATERAL ISCHEMIA CW 10/14/16 RATE INCREASED SIMILAR MORPHOLOGY TO CONSIDER ISCHEMIA Electronically Signed On 10-14-2016 17:03:35 EDT by Thong Troncoso
== END 2016-10-14 16:29 | disposition short-term general hospital (02) ==
LOC: M ED 10:15
DX: I21.4 Non-ST elevation (NSTEMI) myocardial infarction (principal); R94.31 Abnormal electrocardiogram [ECG] [EKG]; M25.551 Pain in right hip; G40.909 Epilepsy, unspecified, not intractable, without status epilepticus; Z86.73 Personal history of transient ischemic attack (TIA), and cerebral infarction without residual deficits; G47.30 Sleep apnea, unspecified; I10 Essential (primary) hypertension; E07.9 Disorder of thyroid, unspecified; E11.9 Type 2 diabetes mellitus without complications; D25.9 Leiomyoma of uterus, unspecified; M25.751 Osteophyte, right hip; Z79.899 Other long term (current) drug therapy; Z88.8 Allergy status to other drugs, medicaments and biological substances; Z91.89 Other specified personal risk factors, not elsewhere classified